=== PATIENT | female | born 1985 | race Caucasian/White ===

== ENCOUNTER 2016-11-28 01:33 | Inpatient (IN) | payer MEDICAID ==
[~2016-11-28] VITALS: Ht 154.9 cm; Wt 175.0 kg
[~2016-11-28 01:33] MED LIST: SUMA50TA11 PO
[2016-11-28] MEDS ORDERED: HYDROmorphONE 1 MG/ML SYG IV STA ×2 (01:57→04:10)
[2016-11-28] MEDS ORDERED: ONDANSETRON 4 MG INJ IV STA (01:57)
[2016-11-28] MEDS ORDERED: ACET-141 PO (02:03)
[2016-11-28] MEDS ORDERED: MULTI PO (02:03)
[2016-11-28] MEDS ORDERED: THIA50TA10 PO (02:03)
[2016-11-28 02:04] LABS: ADD SCAN DIFF NO
[2016-11-28 02:05] LABS: BASOPHIL # 0.1 10^3/ul (0.0-0.1); BASOPHILS % 0.5 % (0.0-2.0); EOSINOPHILS # 0.1 10^3/ul (0.0-0.5); EOSINOPHILS % 0.3 % (0.0-7.0); HEMATOCRIT 40.4 % (37.0-47.0); HEMOGLOBIN 14.4 g/dl (12.0-16.0); LYMPHOCYTES # 2.7 10^3/ul (0.8-2.9); LYMPHOCYTES % 15.1 % (15.0-51.0); MEAN CORPUSCULAR HGB CONC 35.6 g/dl (32.0-37.0); MEAN CORPUSCULAR VOLUME 81.5 fl (82.0-101.0); MONOCYTES % 5.4 % (0.0-11.0); NEUTROPHIL # 13.9 10^3/ul (1.6-7.5); PLATELET COUNT 429 10^3/UL (140-415); RED BLOOD COUNT 4.96 10^6/ul (4.20-5.40); WHITE BLOOD COUNT 17.9 10^3/ul (4.8-10.8)
[2016-11-28 02:17] LABS: ALBUMIN 4.7 g/dl (3.3-4.9); ALBUMIN/GLOBULIN RATIO 1.38; BILIRUBIN,INDIRECT 0.6 mg/dl (0-1.1); BILIRUBIN,TOTAL 0.6 mg/dl (0.2-1.3); CALCIUM 10.2 mg/dl (8.4-10.2); CREATININE 0.55 mg/dl (0.44-1.00); INR 0.92; PARTIAL THROMBOPLASTIN TIME 23.1 Sec (25.0-35.0); POTASSIUM 4.2 mmol/L (3.5-5.1); PROTIME 12.4 Sec (12.2-14.2); TOTAL PROTEIN 8.1 g/dl (6.1-8.1)
--- NOTE | 2016-11-28 02:43 | RADRPT ---
PROCEDURE: Portable chest x-ray. CLINICAL INDICATION: Abdominal pain. TECHNIQUE: Portable AP view of the chest. COMPARISON: 04/21/2016. FINDINGS: A nasogastric tube has been removed. There are low lung volumes. No pulmonary edema or conolidatio n is identified. The cardiac silhouette is magnified. No pleural effusion is seen. There is no pn eumothorax. There is no pneumoperitoneum. IMPRESSION: 1. No evidence of acute cardiopulmonary disease. 2. No pneumoperitoneum. RPTAT: HTAR .Navid Carson MD, MD Date Time Electronically viewed and signed by .Navid Carson MD, MD on 11/28/2016 02:42 .R/
[2016-11-28 03:43] LABS: ADD UMIC YES; URINE BILIRUBIN (Dip) NEGATIVE (NEGATIVE); URINE BLOOD (Dip) 2+ (NEGATIVE); URINE COLOR LT. YELLOW (YELLOW); URINE GLUCOSE (Dip) NEGATIVE (NEGATIVE); URINE KETONES (Dip) TRACE (NEGATIVE); URINE LEUKOCYTE ESTERASE (Dip) NEGATIVE (NEGATIVE); URINE NITRITE (Dip) NEGATIVE (NEGATIVE); URINE TOTAL PROTEIN (Dip) TRACE (NEGATIVE); URINE UROBILINOGEN (Dip) 0.2 E.U./dL (0.1-1.0)
[2016-11-28 03:55] LABS: MUCUS,URINE FEW; SQUAMOUS EPITHELIAL CELL,UR FEW
[2016-11-28 03:56] LABS: BACTERIA,URINE FEW
--- NOTE | 2016-11-28 04:06 | RADRPT ---
PROCEDURE: CT Abdomen and Pelvis without contrast. CLINICAL INDICATION: Abdominal pain TECHNIQUE: CT scan of the abdomen and pelvis without contrast was performed on a multidetector hig h-resolution CT scanner. The patient was scanned without intravenous contrast. Coronal and sagittal reformatted images were obtained from the axial source images. Images were reviewed on a high-resol [employer] PACS workstation. The total exam CTDI equals 18.21 mGy and the total exam DLP equals 1136.78 m Gy-cm. One or more the following dose reduction techniques were utilized: Automated exposure control, adjus tment of the mA/ or kV according to patient's size, or use of iterative reconstruction technique. COMPARISON: 04/21/2016 FINDINGS: CT abdomen: Mild dependent atelectasis in posterior lower lungs. The heart size is normal, without pericardial thickening or effusion. The liver is normal in size and density without focal mass or intrahepatic biliary dilatation. The spleen is normal in size and homogeneous in density. The stomach is partia lly collapsed, but is grossly unremarkable. The pancreas as visualized is normal. Cholecystectomy. The adrenal glands are symmetric and normal. The kidneys are symmetrically unremarkable as well. No renal calculus or obstructive uropathy or mass lesion is seen. The aorta is of normal caliber. There is no retroperitoneal lymphadenopathy. The yvonne hepatis re gion is clear. There are dilated small bowel loops containing air and fluid with maximal diameter 3. 7 cm in the anterior mid abdomen with appearance of a transition point to nondilated small bowel in the left upper quadrant and "fecalization" of contents of small bowel in the right mid abdomen sugge stive of stasis with nondilated small bowel loops in the pelvis. Findings are consistent with a smal l bowel obstruction. CT pelvis: The small bowel loops situated within the pelvis are unremarkable. The pelvic organs are normal. B ladder is nearly empty. The pelvic sidewalls and inguinal regions are clear. The sigmoid colon and rectum are unremarkable. No mass or lymphadenopathy is seen. Small amount of free fluid in the cul -de-sac region on the right and anterior to the uterus on the left. Small scattered bone islands again seen. IMPRESSION: Dilated small bowel loops containing air and fluid with maximal diameter 3.7 cm in the anterior mid abdomen with appearance of a transition point to nondilated small bowel in the left upper quadrant a nd "fecalization" of contents of small bowel in the right mid abdomen suggestive of stasis with nond ilated small bowel loops in the pelvis. Findings are consistent with a small bowel obstruction. Smal l amount of free fluid in pelvis. Please see above. RPTAT: HJES .Cleveland Morris MD, MD Date Time Electronically viewed and signed by .Cleveland Morris MD, MD on 11/28/2016 04:05 .S/
--- NOTE | 2016-11-28 04:47 | ERA ---
ER Documentation Chief Complaint Date/Time DATE: 11/28/16 TIME: 04:46 Chief Complaint upper abd pain x 2 days w/ vomiting HPI This is a 31 year female with abdominal pain for 2 days with vomiting. No fevers no chills. She has a history of multiple small bowel obstructions in the past. Pain is mild to moderate intensity, crampy in nature and colicky as well. No other current issues. No fevers no chills. No other current complaints ROS All systems reviewed and are negative except as per history of present illness. Medications Home Meds Reported Medications Thiamine* (Vitamin B-1*) 50 Mg Tablet, 50 MG PO DAILY, TAB 11/28/16 Multivitamins* (Theragran*) 1 Tab Tab, 1 TAB PO DAILY, TAB 11/28/16 Acetaminophen* (Acetaminophen*) 500 MG Extra Strength Tablet, 500 MG PO Q4H Y for PAIN AND OR ELEVATED TEMP, TAB 11/28/16 Sumatriptan Succinate* (Imitrex*) 50 Mg Tablet, 50 MG PO DAILY Y for MIGRAINE HEADACHE, TAB May repeat after 2 hours if needed; MAX 200 mg/24 hours 04/21/16 Allergies Allergies: Coded Allergies: acetaminophen (Verified Allergy, Unknown, 11/28/16) codeine (Verified Allergy, Unknown, 11/28/16) hydrocodone (Verified Allergy, Unknown, 11/28/16) PMhx/Soc History of Surgery: Yes (mauricio gama) Anesthesia Reaction: No Hx Neurological Disorder: No Hx Respiratory Disorders: No Hx Cardiac Disorders: No Hx Psychiatric Problems: No Hx Miscellaneous Medical Probl: Yes (mass on left breast, recurring scar tissue intestines) Hx Alcohol Use: No Hx Substance Use: No Hx Tobacco Use: No Smoking Status: Unknown if ever smoked Physical Exam Vitals Vital Signs Date Time Temp Pulse Resp B/P Pulse Ox O2 Delivery O2 Flow Rate FiO2 11/28/16 03:00 88 18 132/81 96 Room Air 11/28/16 01:36 97.8 108 20 134/86 98 Physical Exam Const: [] Head: Atraumatic Eyes: Normal Conjunctiva ENT: Normal External Ears, Nose and Mouth. Neck: Full range of motion..~ No meningismus. Resp: Clear to auscultation bilaterally Cardio: Regular rate and rhythm, no murmurs Abd: Soft, non tender, non distended. Normal bowel sounds Skin: No petechiae or rashes Back: No midline or flank tenderness Ext: No cyanosis, or edema Neur: Awake and alert Psych: Normal Mood and Affect Result Diagram: 11/28/16 0153 11/28/16 0153 Results 24 hrs Laboratory Tests Test 11/28/16 01:53 11/28/16 02:49 White Blood Count 17.910^3/ul Red Blood Count 4.9610^6/ul Hemoglobin 14.4g/dl Hematocrit 40.4% Mean Corpuscular Volume 81.5fl Mean Corpuscular Hemoglobin 29.0pg Mean Corpuscular Hemoglobin Concent 35.6g/dl Red Cell Distribution Width 12.0% Platelet Count 78907^3/UL Mean Platelet Volume 10.0fl Neutrophils % 78.0% Lymphocytes % 15.1% Monocytes % 5.4% Eosinophils % 0.3% Basophils % 0.5% Nucleated Red Blood Cells % 0.0/100WBC Neutrophils # 13.910^3/ul Lymphocytes # 2.710^3/ul Monocytes # 1.010^3/ul Eosinophils # 0.110^3/ul Basophils # 0.110^3/ul Nucleated Red Blood Cells # 0.010^3/ul Prothrombin Time 12.4Sec Prothrombin Time Ratio 1.0 INR International Normalized Ratio 0.92 Activated Partial Thromboplast Time 23.1Sec Sodium Level 138mmol/L Potassium Level 4.2mmol/L Chloride Level 102mmol/L Carbon Dioxide Level 25mmol/L Anion Gap 15 Blood Urea Nitrogen 15mg/dl Creatinine 0.55mg/dl Glucose Level 155mg/dl Calcium Level 10.2mg/dl Total Bilirubin 0.6mg/dl Direct Bilirubin 0.00mg/dl Indirect Bilirubin 0.6mg/dl Aspartate Amino Transf (AST/SGOT) 24IU/L Alanine Aminotransferase (ALT/SGPT) 34IU/L Alkaline Phosphatase 81IU/L Total Protein 8.1g/dl Albumin 4.7g/dl Globulin 3.40g/dl Albumin/Globulin Ratio 1.38 Lipase 64U/L Urine Color LT. YELLOW Urine Clarity CLEAR Urine pH 6.5 Urine Specific [place] 1.020 Urine Ketones TRACE Urine Nitrite NEGATIVE Urine Bilirubin NEGATIVE Urine Urobilinogen 0.2 E.U./dL Urine Leukocyte Esterase NEGATIVE Urine Microscopic RBC 2-5/HPF Urine Microscopic WBC 0-2/HPF Urine Squamous Epithelial Cells FEW Urine Bacteria FEW Urine Mucus FEW Urine Hemoglobin 2+ Urine Glucose NEGATIVE% Urine Total Protein TRACE Current Medications Medications (Trade) Dose Ordered Sig/Alexander Route PRN Reason Start Time Stop Time Status Last Admin Dose Admin Hydromorphone HCl (Dilaudid) 1 mg ONCE STAT IV 11/28/16 01:57 11/28/16 01:59 DC 11/28/16 02:02 Ondansetron HCl (Zofran Inj) 4 mg ONCE STAT IV 11/28/16 01:57 11/28/16 01:59 DC 11/28/16 02:02 Hydromorphone HCl (Dilaudid) 1 mg ONCE STAT IV 11/28/16 04:10 11/28/16 04:11 DC 11/28/16 04:14 Procedures/MDM Medical decision-making: Patient comes in with looks to be acute small bowel obstruction. Patient will be admitted to hospitalist with Dr. Trent from surgery for consult Departure Diagnosis: Primary Impression: Abdominal pain Qualified Code: R10.84 - Generalized abdominal pain Additional Impression: Small bowel obstruction Condition: Serious MELBA DUTTA November 28, 2016 04:47
[2016-11-28] MEDS ORDERED: LORAZEPAM 2 MG INJ IV ONE (05:00)
[2016-11-28] MEDS ORDERED: NACL 0.9% 3 ML SYG IV SCH (06:00)
[2016-11-28] MEDS ORDERED: ONDANSETRON 4 MG INJ IV ONE (06:05)
--- NOTE | 2016-11-28 06:07 | HP ---
Date/Time of Note Date/Time of Note DATE: 11/28/16 TIME: 05:45 Assessment/Plan VTE Prophylaxis VTE Prophylaxis Intervention: SCD's Assessment/Plan Chief Complaint/Hosp Course This is a 31-year-old female being admitted to [facility] floor for: #1 small bowel obstruction - likely secondary to previous abdominal surgeries/ adhesions. CT scan is consistent with small bowel obstruction see scanned findings for more detail. Keep patient n.p.o., normal saline at 100 cc an hour for fluid hydration, Zofran 4 mg IV every 6 hours for nausea, Dilaudid 1 mg every 4 hours as needed pain, surgery Dr. Trent was consulted via the ER. Continue supportive care. #2 leukocytosis: Patient is currently afebrile and there is no obvious source for an infection at this time. This could be reactive in nature. We will continue to monitor this and repeat CBC in the a.m. And keep an eye out for any signs or sources of infection. #3 migraines: Stable at this time will hold Imitrex medication as patient is n.p.o. if patient does experience migraine we could try IV medication. #4 hyperlipidemia, patient is not currently on any medication at this time. We will recheck her lipid panel. #5 DVT and GI prophylaxis, SCDs and Protonix Problems: HPI/ROS Admit Date/Time Admit Date/Time 11/28/2016 Hx of Present Illness This is a 31-year-old female coming into the ER with pain in her abdomen that started yesterday and vomiting. Patient states she was just at home sitting when she started experiencing excruciating pain in the epigastric portion of her abdomen. She does start having nausea and vomiting. She has had this happen to her multiple times in the past as a result of her previous abdominal surgeries as a child. She has had multiple small bowel obstructions. She has not been unable to undergo surgery to correct any of the problems secondary to her insurance. Upon coming to the ER she still was experiencing nausea and vomiting an NG tube was put in which did provide her some mild relief. Her pain is better controlled with the Dilaudid though she prefers not to take it. Allergies: Vicodin, codeine Meds: See INESSA OLIVARES Const: Nausea, vomiting Eyes : No pain discharge or redness or change in visual acuity ENT: No pain, sore throat, congestion, congestion, dysphagia or discharge Respiratory: No shortness of breath, cough, sputum, wheezing, or pleuritic pain Cardiovascular: No chest pain, palpitation, PND, or edema GI : As stated above in the HPI Genitourinary: No dysuria, hematuria, flank pain , discharge or CVA tenderness Musculoskeletal: No joint pain, back pain, neck pain, restricted range of motion in neck or joints Skin: No rash, bruising or hives Neuro: No headache, dizziness, syncope, seizure, focal weakness Endocrine: No polyuria, polydipsia, temperature intolerance Psych: No hallucination, depression, anxiety or suicidal ideation PMH/Family/Social Past Medical History Hyperlipidemia, migraines, multiple small bowel obstructions Past Surgical History Appendectomy, cholecystectomy Past Surgical Hx: other Family History Significant Family History: no pertinent family hx Social History Alcohol Use: none Smoking Status: Never smoker Drug Use: none Exam/Review of Systems Vital Signs Vitals Vital Signs Date Time Temp Pulse Resp B/P Pulse Ox O2 Delivery O2 Flow Rate FiO2 11/28/16 03:00 88 18 132/81 96 Room Air 11/28/16 01:36 97.8 Exam Exam General: This is a well-developed female in moderate distress, she is experiencing persistent need to heave The patient is alert oriented -3 HEENT: Atraumatic, normocephalic. The pupils are equal, round and reactive. Extraocular motor are intact, NG tube in place Neck: Supple with full range of motion. No rigidity or meningismus Chest: Nontender Lungs: Clear to auscultation bilaterally no crackles rales or wheezing Heart: Normal S1-S2, Regular rhythm and rate. No murmur, S3, or S4 Abdomen: Tender to palpation at the epigastric region, hypoactive bowel sounds Extremities: Normal to inspection, no edema no cyanosis Neurologic: Normal mental status, speech normal, cranial nerves II through XII are intact, motor and sensory are intact, no focal weakness Additional Comments Chest x-ray MPRESSION: 1. No evidence of acute cardiopulmonary disease. 2. No pneumoperitoneum. CT abdomen pelvis PRESSION: Dilated small bowel loops containing air and fluid with maximal diameter 3.7 cm in the anterior mid abdomen with appearance of a transition point to nondilated small bowel in the left upper quadrant and "fecalization" of contents of small bowel in the right mid abdomen suggestive of stasis with nondilated small bowel loops in the pelvis. Findings are consistent with a small bowel obstruction. Small amount of free fluid in pelvis. Please see above. Labs Result Diagram: 11/28/16 0153 11/28/[address] November 28, 2016 05:56
[2016-11-28 06:53] LABS: CHOL/HDL RATIO 2.6 RATIO
[2016-11-28 06:55] LABS: INR 0.92; PROTIME 12.4 Sec (12.2-14.2)
[2016-11-28 06:56] LABS: PARTIAL THROMBOPLASTIN TIME 20.3 Sec (25.0-35.0)
[2016-11-28] MEDS: SOD CHLORIDE 0.9% 1,000 ML IV SCH ×2 (07:27→23:17)
[2016-11-28] MEDS: PANTOPRAZOLE 40 MG INJ IV SCH (07:28)
[2016-11-28] MEDS: HYDROmorphONE 1 MG/ML SYG IV PRN ×4 (07:28→23:17)
[2016-11-28] MEDS: ONDANSETRON 4 MG INJ IV PRN ×2 (14:03→23:17)
[2016-11-28 14:14] VITALS: PULSE 102; TEMP 98.2
[2016-11-28 18:06] VITALS: BP 126/79; RESP 19
[2016-11-28 18:32] VITALS: Ht 154.9 cm; Wt 175.0 kg
[2016-11-28 20:24] VITALS: BP 125/76; RESP 20
--- NOTE | 2016-11-28 21:34 | CONS ---
DATE OF ADMISSION: 11/28/2016 DATE OF CONSULTATION: REASON FOR CONSULTATION: Small-bowel obstruction. HISTORY OF PRESENT ILLNESS: The patient is a morbidly obese 31-year-old female who presents to the emergency room with 2 days of abdominal pain, nausea, and vomiting. She has had multiple abdominal childhood surgeries, which over the course of her life, has resulted in several hospitalizations for small-bowel obstruction. In each instance, small-bowel obstruction resolved with nonoperative jere ures. Her most recent hospitalization for this, according to the patient, was 6 months ago. She ratliff s had no fevers or chills. Today, the patient has passed some gas and feels slightly symptomaticall y improved. REVIEW OF SYSTEMS: HEAD, EARS, EYES, NOSE, AND THROAT: Unremarkable. PULMONARY: No history of pneumonia or shortness of breath or asthma. CARDIAC: No history of chest pain, SC, arrhythmia. ABDOMEN: As in the HPI. OUTPATIENT MEDICATIONS: 1. Multivitamins. 2. Tylenol. ALLERGIES: 1. CODEINE. 2. HYDROCODONE. OTHER PAST SURGERIES: Laparoscopic cholecystectomy and appendectomy. PHYSICAL EXAMINATION: GENERAL: The patient is a morbidly obese 31-year-old female who is awake and alert, in no acute dis tress. HEAD, EARS, EYES, NOSE, THROAT: Within normal limits. There is a nasogastric tube in place drainin g bilious contents. The NG canister this is empty. LUNGS: Clear. HEART: Regular rhythm. ABDOMEN: Obese, but soft and nontender, without masses or hernias. EXTREMITIES: Unremarkable. LABORATORY DATA: The patient's hematocrit is 40 with a white count of 17,900 and a left shift with 78 polys. BUN, glucose, electrolytes are unremarkable. IMAGING: Compatible with small-bowel obstruction. PLAN: Continue NG decompression, IV fluids. Small bowel follow through has been ordered for tomorr ow morning. Further recommendations for this patient will depend on the patient's further workup an d clinical course. Dictated By: EVELYN FREEMAN/LAURA Conf#: [id number] DID#: [id number] CC: Morgan Fairbanks;*EndCC*
[2016-11-29] MEDS: SOD CHLORIDE 0.9% 1,000 ML IV SCH ×3 (01:45→21:45)
[2016-11-29] MEDS: HYDROmorphONE 1 MG/ML SYG IV PRN ×3 (03:44→12:03)
[2016-11-29 05:38] LABS: ADD SCAN DIFF NO
[2016-11-29 05:50] LABS: BASOPHILS % 0.4 % (0.0-2.0); EOSINOPHILS # 0.1 10^3/ul (0.0-0.5); EOSINOPHILS % 0.8 % (0.0-7.0); HEMATOCRIT 36.4 % (37.0-47.0); HEMOGLOBIN 12.7 g/dl (12.0-16.0); LYMPHOCYTES # 1.5 10^3/ul (0.8-2.9); LYMPHOCYTES % 13.8 % (15.0-51.0); MEAN CORPUSCULAR HEMOGLOBIN 29.1 pg (29.0-33.0); MEAN CORPUSCULAR HGB CONC 34.9 g/dl (32.0-37.0); MEAN CORPUSCULAR VOLUME 83.5 fl (82.0-101.0); MONOCYTE # 0.9 10^3/ul (0.3-0.9); MONOCYTES % 8.5 % (0.0-11.0); NEUTROPHIL # 8.1 10^3/ul (1.6-7.5); NEUTROPHILS % 75.9 % (39.0-77.0); PLATELET COUNT 327 10^3/UL (140-415); RED BLOOD COUNT 4.36 10^6/ul (4.20-5.40); RED CELL DISTRIBUTION WIDTH 12.5 % (11.5-14.5); WHITE BLOOD COUNT 10.6 10^3/ul (4.8-10.8)
[2016-11-29 05:58] LABS: ALBUMIN 3.6 g/dl (3.3-4.9)
[2016-11-29 05:59] LABS: POTASSIUM 3.3 mmol/L (3.5-5.1)
[2016-11-29 06:01] LABS: ALBUMIN/GLOBULIN RATIO 1.24; BILIRUBIN,INDIRECT 0.6 mg/dl (0-1.1); BILIRUBIN,TOTAL 0.6 mg/dl (0.2-1.3); CREATININE 0.51 mg/dl (0.44-1.00); TOTAL PROTEIN 6.5 g/dl (6.1-8.1)
[2016-11-29 06:02] LABS: CALCIUM 8.3 mg/dl (8.4-10.2)
[2016-11-29] MEDS: PANTOPRAZOLE 40 MG INJ IV SCH (06:03)
[2016-11-29 07:34] VITALS: BP 122/75; RESP 16
--- NOTE | 2016-11-29 08:24 | PN ---
DATE: The patient is symptomatically improved and appears quite comfortable. Her abdominal examination re chung benign, but slightly distended. Her white blood cell count has come down to 10,600. PLAN: SBFT today. Dictated By: EVELYN FREEMAN/LAURA Conf#: [id number] DID#: [id number]
[2016-11-29] MEDS ORDERED: DIATR MEGLU/DIATRIZOATE SODIUM 120 ML BTL ONE (08:33)
[2016-11-29 09:43] LABS: MAGNESIUM 2.1 mg/dl (1.7-2.5); PHOSPHORUS 3.2 mg/dl (2.5-4.9)
[2016-11-29] MEDS: ONDANSETRON 4 MG INJ IV PRN (10:46)
[2016-11-29 12:22] LABS: THYROID STIMULATING HORMONE 0.359 MIU/L (0.465-4.680)
--- NOTE | 2016-11-29 15:32 | RADRPT ---
PROCEDURE: Small bowel follow-through. CLINICAL INDICATION: Abdomen pain. TECHNIQUE: Water-soluble contrast was administered via the nasogastric tube and several spot and o verhead radiographs of the abdomen were obtained. COMPARISON: None. FINDINGS: On the preliminary radiograph, the nasogastric tube is noted in the stomach. Surgical clips are pre sent in the right upper quadrant from previous cholecystectomy. A small amount of contrast or calci fied material remains within bowel in the left side of the abdomen. With contrast in the stomach, there is no evidence of gastric outlet obstruction. The small bowel f olds are normal. There is no evidence of small bowel obstruction. Transit time is normal with contrast in the colon at 4 hours. IMPRESSION: 1. Nasogastric tube tip in the stomach. 2. Previous cholecystectomy. 3. No evidence of small bowel obstruction. RPTAT: QQ .Devaughn Reynaga MD, Date Time Electronically viewed and signed by .Devaughn Reynaga MD, on 11/29/2016 15:31 .R/
[2016-11-29] MEDS ORDERED: POTASSIUM CHLORIDE 20 MEQ in SOD CHLORIDE 0.9% 100 ML IVPB ONE (17:30)
--- NOTE | 2016-11-29 18:08 | PN ---
Date/Time of Note Date/Time of Note DATE: 11/29/16 TIME: 18:06 Assessment/Plan VTE Prophylaxis VTE Prophylaxis Intervention: SCD's Assessment/Plan Assessment/Plan #1 small bowel obstruction - likely secondary to previous abdominal surgeries/ adhesions. improving, Plan for SBFollow today G surg following #2 leukocytosis: improvin g #3 migraines: Stable #4 hyperlipidemia, - diet control KCl 20mEQ IV x 1 dose now G surge to decide for diet after Small bowel follow through #5 DVT and GI prophylaxis, SCDs and Protonix Subjective 24 Hr Interval Summary Free Text/Dictation abd pain improving,K low, on IVF, NG tube Exam/Review of Systems Vital Signs Vitals Vital Signs Date Time Temp Pulse Resp B/P Pulse Ox O2 Delivery O2 Flow Rate FiO2 11/29/16 07:34 98.6 97 16 122/75 96 11/28/16 14:14 Room Air Intake and Output 11/28/16 11/28/16 11/29/16 15:00 23:00 07:00 Intake Total 1600 ml Balance 1600 ml Results Result Diagram: 11/29/16 0515 11/29/16 0515 Results 24 hrs Laboratory Tests Test 11/29/16 05:15 White Blood Count 10.6 # Red Blood Count 4.36 Hemoglobin 12.7 Hematocrit 36.4 L Mean Corpuscular Volume 83.5 Mean Corpuscular Hemoglobin 29.1 Mean Corpuscular Hemoglobin Concent 34.9 Red Cell Distribution Width 12.5 Platelet Count 327 # Mean Platelet Volume 10.0 Neutrophils % 75.9 Lymphocytes % 13.8 L Monocytes % 8.5 Eosinophils % 0.8 Basophils % 0.4 Nucleated Red Blood Cells % 0.0 Neutrophils # 8.1 H Lymphocytes # 1.5 Monocytes # 0.9 Eosinophils # 0.1 Basophils # 0.0 Nucleated Red Blood Cells # 0.0 Sodium Level 141 Potassium Level 3.3 L Chloride Level 105 Carbon Dioxide Level 26 Anion Gap 13 Blood Urea Nitrogen 15 Creatinine 0.51 Glucose Level 101 # Hemoglobin A1c 5.1 Calcium Level 8.3 L Phosphorus Level 3.2 Magnesium Level 2.1 Total Bilirubin 0.6 Direct Bilirubin 0.00 Indirect Bilirubin 0.6 Aspartate Amino Transf (AST/SGOT) 30 Alanine Aminotransferase (ALT/SGPT) 40 Alkaline Phosphatase 64 Total Protein 6.5 # Albumin 3.6 # Globulin 2.90 Albumin/Globulin Ratio 1.24 Thyroid Stimulating Hormone (TSH) 0.359 L Free Thyroxine 1.01 Medications Medications Current Medications Sodium Chloride (NS) 1,000 ml @ 100 mls/hr Q10H IV Last administered on 12:01; Admin Dose 100 MLS/HR; Start 11/28/16 at 05:45 Ondansetron HCl (Zofran Inj) 4 mg Q6H PRN IV NAUSEA AND/OR VOMITING Last administered on 11/29/16 10:46; Admin Dose 4 MG; Start 11/28/16 at 06:00 Hydromorphone HCl (Dilaudid) 1 mg Q4H PRN IV SEVERE PAIN LEVEL 7-10 Last administered on 11/29/16 12:03; Admin Dose 1 MG; Start 11/28/16 at 06:00 Pantoprazole 40 mg 40 mg DAILY@06 IV Last administered on 11/29/16 06:03; Admin Dose 40 MG; Start 11/28/16 at 06:00 Potassium Chloride/Sodium Chloride (KCl/NS) 110 ml @ 55 mls/hr ONCE ONCE IVPB ; Start 11/29/16 at 17:30; Stop 11/29/16 at 19:29 LEON TEJADA MD November 29, 2016 18:08
[2016-11-29 19:42] VITALS: BP 132/70; RESP 20
[2016-11-30] MEDS: SOD CHLORIDE 0.9% 1,000 ML IV SCH (01:28)
[2016-11-30] MEDS: PANTOPRAZOLE 40 MG INJ IV SCH (06:00)
[2016-11-30] MEDS ORDERED: IBUPROFEN 400 MG TAB PO ONE (06:30)
[2016-11-30 06:35] LABS: ADD SCAN DIFF NO
[2016-11-30 06:47] LABS: BASOPHILS % 0.4 % (0.0-2.0); EOSINOPHILS # 0.1 10^3/ul (0.0-0.5); EOSINOPHILS % 1.4 % (0.0-7.0); HEMATOCRIT 34.9 % (37.0-47.0); LYMPHOCYTES # 2.4 10^3/ul (0.8-2.9); MEAN CORPUSCULAR HEMOGLOBIN 28.6 pg (29.0-33.0); MEAN CORPUSCULAR HGB CONC 34.4 g/dl (32.0-37.0); MEAN CORPUSCULAR VOLUME 83.3 fl (82.0-101.0); MEAN PLATELET VOLUME 10.4 fl (7.4-10.4); MONOCYTE # 0.9 10^3/ul (0.3-0.9); NEUTROPHIL # 6.1 10^3/ul (1.6-7.5); NEUTROPHILS % 63.6 % (39.0-77.0); PLATELET COUNT 327 10^3/UL (140-415); RED BLOOD COUNT 4.19 10^6/ul (4.20-5.40); RED CELL DISTRIBUTION WIDTH 12.5 % (11.5-14.5); WHITE BLOOD COUNT 9.6 10^3/ul (4.8-10.8)
[2016-11-30 07:10] LABS: CREATININE 0.52 mg/dl (0.44-1.00); POTASSIUM 3.2 mmol/L (3.5-5.1)
[2016-11-30 07:20] LABS: INR 1.05; PROTIME 13.7 Sec (12.2-14.2); PT RATIO 1.1
[2016-11-30 07:22] LABS: PARTIAL THROMBOPLASTIN TIME 23.5 Sec (25.0-35.0)
[2016-11-30 08:10] VITALS: BP 116/71; RESP 18
--- NOTE | 2016-11-30 08:15 | RADRPT ---
PROCEDURE: XR Abdomen. CLINICAL INDICATION: Abdomen pain. TECHNIQUE: AP supine abdomen x-ray. COMPARISON: Small bowel follow-through dated 11/29/2016. FINDINGS: Previously noted contrast throughout the small bowel and colon is no longer present. There is no ev idence of obstruction. Surgical clips are present in the right upper quadrant of the abdomen. There are no abnormal calcifications overlying the urinary tracts. The osseus structures are unremarkable. IMPRESSION: 1. Prior right upper quadrant abdomen surgery. 2. No evidence of bowel obstruction. RPTAT: QQ .Devaughn Reynaga MD, MD Date Time Electronically viewed and signed by .Devaughn Reynaga MD, MD on 11/30/2016 08:14 .R/
[2016-11-30] MEDS ORDERED: FLUTICASONE 0.05% 16 GM NAS SPRAY NASAL SCH (09:00)
--- NOTE | 2016-11-30 10:36 | PN ---
DATE: 11/30/2016 The patient is markedly symptomatically improved. Small bowel follow through shows no evidence of o bstruction. The NG tube has been removed and the patient is tolerating liquids. She has had a lyubov l movement. OBJECTIVE: Her abdominal examination is benign. Today's KUB shows no evidence of obstruction. LABORATORY DATA: The patient's leukocytosis has resolved. The white count has come down to 9600 wi th resolution of left shift. IMPRESSION: Small-bowel obstruction, resolved. PLAN: Can advance diet as tolerated. There are no further surgical recommendations. The patient c an be discharged if tolerates a soft diet. I will sign off and see again p.r.n. your request. Dictated By: EVELYN FREEMAN/LAURA Conf#: [id number] DID#: [id number]
--- NOTE | 2016-11-30 11:01 | PDOCDIS ---
Discharge Instructions CONDITION Patient Condition: Good HOME CARE INSTRUCTIONS: Special Diet: Regular diet ACTIVITY: Activity Restrictions: Slowly Increase Activity Rest between Activity Avoid heavy lifting Avoid Heavy Housework FOLLOW UP/APPOINTMENTS Appointments follow up with her own PMD through HMO insurance in 1-2 weeks.Follow up with GI in 1-2 week LEON TEJADA MD November 30, 2016 11:01
[2016-11-30] MEDS ORDERED: METO10TA92 PO (11:02)
[2016-11-30] MEDS ORDERED: PANT40TA3 PO (11:02)
[2016-11-30] MEDS ORDERED: POTASSIUM CHLORIDE (SR) 20 MEQ TAB PO STA (11:22)
--- NOTE | 2016-12-01 18:30 | DS ---
DATE OF ADMISSION: 11/28/2016 DATE OF DISCHARGE: 11/30/2016 FINAL DISCHARGE DIAGNOSES: 1. Acute small-bowel obstruction status secondary to previous abdominal surgeries/adhesions, resolved. 2. Acute leukocytosis secondary to small-bowel obstruction. 3. History of hyperlipidemia. 4. History of migraine. 5. Hypokalemia secondary to decreased p.o. intake. CONSULTATIONS DONE DURING THIS HOSPITALIZATION: General surgery consult, Dr. Sherwin Trent. PROCEDURES PERFORMED DURING THIS HOSPITALIZATION: The patient had upper GI small bowel follow through, which was negative for any small-bowel obstruction. She previously had a CT abdomen and pelvis positive for small-bowel obstruction. HOSPITAL COURSE: This is a 31-year-old female with a past medical history of previous bowel surgery and also had multiple adhesions. She presented with abdominal pain, nausea, vomiting, and she was noted to have a small-bowel obstruction. The patient likely has a small-bowel obstruction secondary to her previous abdominal surgeries/adhesions. CT scan was consistent with a small- bowel obstruction, so she received IV antibiotics, Zosyn, IV fluid hydration, and she was also kept n.p.o. She had a general surgery consultation done by Dr. Sherwin Trent. Initially, she had NG tube placement and NG tube was placed to a low intermittent suction. The patient remained hemodynamically stable. She was given IV fluids, pain medication, and was followed up by general surgery. She had NG tube on low intermittent suction followed up by a small bowel follow through, which was negative for any small-bowel obstruction. Her small-bowel obstruction was resolved. After that, she was started on a clear liquid diet, which was slowly advanced to regular soft consistency diet. She tolerated the diet very well. Her pain was also controlled. After getting a clearance from general surgery, she is being discharged to home. DISPOSITION: To home. DISCHARGE CONDITION: Stable and improved compared to admission. DISCHARGE ACTIVITIES: As tolerated, slowly resume to the normal baseline activity. DISCHARGE DIET: Soft consistency regular diet. DISCHARGE MEDICATIONS: As per medical reconciliation. She is given new prescriptions of: 1. Reglan 10 mg p.o. q.6h. p.r.n. nausea, vomiting. 2. Protonix 40 mg p.o. daily. 3. She is continued on her previous home medication. 4. She is advised ____ any narcotics to avoid small-bowel obstruction. She understood and verbalized understanding. DISCHARGE AND FOLLOWUP INSTRUCTIONS: 1. The patient is to follow up with her own primary care doctor through her HMO insurance 1 to 2 weeks after discharge. 2. The patient is to follow up with GI and general surgery as outpatient due to her recurrent small-bowel obstruction. 3. She has been advised to get referral from her primary care doctor to see all the discharge specialists. She understood and verbalized understanding. Total time spent in this patient's discharge plan, explaining instructions to the patient and communicating with the nursing staff took more than 60 minutes. Dictated By: LEON TEJADA MD, KP/LAURA Conf#: [id number] DID#: [id number] CC: Morgan Rangel;*EndCC* MTDD
== END 2016-11-30 13:10 | disposition home or self-care (01) | DRG 327 ==
LOC: E/R 01:33 → MS2 04:50
PROVIDERS: ADMIT Family Medicine; ATTEND Family Medicine
PROC: 0D967ZZ Drainage of Stomach, Via Natural or Artificial Opening (ICD-10-PCS; principal; 2016-11-28)
DX: K56.5 Intestinal adhesions [bands] with obstruction (postinfection) (principal); Z68.45 Body mass index [BMI] 70 or greater, adult; E66.01 Morbid (severe) obesity due to excess calories; D72.829 Elevated white blood cell count, unspecified; E78.5 Hyperlipidemia, unspecified; E87.6 Hypokalemia; G43.909 Migraine, unspecified, not intractable, without status migrainosus
CPT/HCPCS: 36415; 71010; 74000; 74176; 74250; 80048; 80053; 80061; 81001; 81003; 83036; 83690; 83735; 84100; 84439; 84443; 85025; 85610; 85730; 96374; 96375; 96376; C9113; J1170; J2060; J2405; J3480; J7030